=== PATIENT | female | born 1950 | race Caucasian/White ===

== ENCOUNTER 2024-02-03 09:14 | Emergency (ER) | payer OTHER, SELFPAY ==
[2024-02-03 09:21] VITALS: BP 131/69
[2024-02-03 10:18] VITALS: BP 141/57
[2024-02-03 10:19] VITALS: BMI 27.9
--- NOTE | 2024-02-03 10:44 | ED.GENMED ---
History of Present Illness
<Ivory Hernandez MD, Resident - Last Filed: 02/03/24 12:10>
General
Chief Complaint: Ear Problem
Time Seen by Provider: 02/03/24 09:39
History of Present Illness
History of Present Illness:
73-year-old female, MS Cindy Mayo presented to the ER complaining of left-sided, nonradiating pain behind the ear that started 2 days ago and was sudden in onset. The pain is intermittent, squeezing feels like a jab, no aggravating or
relieving factors. No history of dizziness/lightheadedness, headaches, vision changes, nausea/vomiting, ear discharge, loss of hearing, ear fullness, tinnitus, vertigo, fever/chills, dental infections, temporomandibular joint problems, neck
stiffness. She has a past medical history of hypertension, hyperlipidemia, sinus surgeries for polyp removal. Patient reports that in June 2022, she was seen in [place] ER for high blood pressure and she got an MRI done, states she could not
recall entirely but they said something about multiple polyps in her sinuses. No prior history of ear infections.
Past History
<Ivory Hernandez MD, Resident - Last Filed: 02/03/24 12:10>
Past History
ED Past Medical History: HTN and Hypercholesterolemia
ED Past Surgical History: Other (Sinus surgeries/polyp removal)
Social History
Tobacco: Non-smoker
Alcohol: None
Drug: None
Personal:
Living: with family
Review of Systems
<Ivory Hernandez MD, Resident - Last Filed: 02/03/24 12:10>
Review of Systems
All Other Systems: ROS reviewed and negative except as documented in HPI and ROS
Phy Exam
<Ivory Hernandez MD, Resident - Last Filed: 02/03/24 12:10>
Physical Exam
Physical Exam:
GEN: Well appearing, NAD, WDWN
Eyes: PERRLA, EOMs intact, no scleral icterus
HENT: NCAT, oral mucosa moist, no JVD, no cervical adenopathy.
Ear examination�left ear�nontender with pressing on tragus, external auditory canal clear without any cerumen impaction, tympanic membrane normal without any bulging.
Right ear�nontender with pressing on tragus, external auditory canal clear without any cerumen impaction, tympanic membrane normal without any bulging.
No tenderness to palpation behind the ear. No neck stiffness, cervical range of motion normal.
Hearing normal.
Lungs: CTAB, no wheezes, rales, rhonchi, normal chest wall excursion
Cardiac: RRR, no M/R/G, no peripheral edema. Radial pulses 2+ bilat
Abdomen: S, NT, ND, NABS, no masses or hepatosplenomegaly
Neuro: AO x 3, no focal deficits to BUE/BLE, normal sensation throughout
Skin: No rashes, petechiae. Normal color, no pallor or jaundice.
Psych: Calm, cooperative, proper hygiene
Course
<Perlaela Aaron Hernandez MD, Resident - Last Filed: 02/03/24 12:10>
Orders/Labs/Results
Orders:
Orders
02/03/24 10:58
CT Temporal-iac W/o Iv Contras Urgent
Comment:
Reason For Exam: Pain behind the left ear
Vital Signs
Initial and Last Documented VS:
Initial Vital Signs
Temp Pulse Resp BP Pulse Ox
99 F 83 18 131/69 97
02/03/24 09:21 02/03/24 09:21 02/03/24 09:21 02/03/24 09:21 02/03/24 09:21
Last Documented Vital Signs
Temp Pulse Resp BP Pulse Ox
99 F 69 18 141/57 95
02/03/24 09:21 02/03/24 10:18 02/03/24 10:18 02/03/24 10:18 02/03/24 10:20
<Nahun Mccartney DO - Last Filed: 02/03/24 11:10>
Orders/Labs/Results
Orders:
Orders
02/03/24 10:58
CT Temporal-iac W/o Iv Contras Urgent
Comment:
Reason For Exam: Pain behind the left ear
Vital Signs
Initial and Last Documented VS:
Initial Vital Signs
Temp Pulse Resp BP Pulse Ox
99 F 83 18 131/69 97
02/03/24 09:21 02/03/24 09:21 02/03/24 09:21 02/03/24 09:21 02/03/24 09:21
Last Documented Vital Signs
Temp Pulse Resp BP Pulse Ox
99 F 69 18 141/57 95
02/03/24 09:21 02/03/24 10:18 02/03/24 10:18 02/03/24 10:18 02/03/24 10:20
<Ivory Hernandez MD, Resident - Last Filed: 02/03/24 12:10>
MDM/Problems Addressed
Differential Diagnosis Includes:
Occipital neuralgia, temporal arteritis, TMJ disorder, otitis media
MDM/Problems Addressed:
Patient mentioned that her pain is less intense now.
CT mastoid-normal appearance of bilateral temporal bones, unremarkable appearance of left retroauricular soft tissues.
Patient is stable to be discharged home.
Patient advised to follow-up with primary care.
<Ivory Hernandez MD, Resident - Last Filed: 02/03/24 12:10>
*Critical Care Note
Total Time (30-74mins, 75-104mins- exclusive of procedures): Not Applicable
ED Attending Note
<Ivory Hernandez MD, Resident - Last Filed: 02/03/24 12:10>
-
Portions of this chart may have been created with voice recognition software.� Occasional wrong word or��sound alike� substitutions may have occurred due to the inherent limitations of voice recognition software.
<Nahun Mccartney DO - Last Filed: 02/03/24 11:10>
ED Attending Note
Patient seen and examined by attending physician: Yes
I performed a history and physical exam of patient and discussed management with resident, I reviewed resident's note and agree with documented findings and plan of care.: Yes
ED Attending Note:
Seen with resident and examined independently intermittent left sided pain behind her ear sharp, no pain now, no headache nausea vomiting no ear drainage no ear discharge, on exam she has no tenderness over palpation over the mastoid, no otitis
media no rash, etiology of symptoms is not entirely clear she has had no ataxia no nausea no vomiting no visual changes
Discharge Plan
Departure
Patient Disposition: Home (Routine Discharge)
Date of Disposition: 02/03/24
Time of Disposition: 12:07
Patient with high blood pressure during this ER visit?: No
Condition: Good
Discharge Problem:
Occipital neuralgia of left side
Referrals:
Daniel Jonas MD [Family Provider] -
Activity Restrictions/Additional Instructions:
Please follow-up with your e primary care within a week.
Interventions
Interventions:
*Risk Screen - Suicide Last Done: 02/03/24 09:21
*General Assessment Last Done: 02/03/24 09:21
*Neglect/Abuse Screening Last Done: 02/03/24 09:21
Discharge Date and Time
Print Language: HONDURAN
[2024-02-03 11:00] VITALS: BP 126/57
[2024-02-03 12:20] VITALS: BP 154/66
== END 2024-02-03 12:28 | disposition home or self-care (01) ==
LOC: EMR 09:14
PROVIDERS: EMERGENCY PHYSICIAN Emergency Medicine; FAMILY PHYSICIAN Family Medicine
DX: M54.81 Occipital neuralgia (principal); I10 Essential (primary) hypertension; E78.00 Pure hypercholesterolemia, unspecified
CPT/HCPCS: 99284; 70480

== ENCOUNTER 2025-05-13 02:53 | Inpatient (IN) | payer OTHER, SELFPAY ==
[2025-05-12 23:48] VITALS: BP 140/67
[2025-05-13] VITALS (7 sets, daily range): BP systolic 116–148; BP diastolic 56–72; BMI 28.8; BMI 28.3
[2025-05-13] MEDS: PROTONIX IV 40 MG IV (00:22)
[2025-05-13] MEDS: NSS 500 IV ×2 (00:23→02:29)
[2025-05-13] MEDS: TORADOL 15 MG IV (00:23)
--- NOTE | 2025-05-13 00:24 | ED.GENMED ---
History of Present Illness
General
Chief Complaint: Abdominal Pain
Source: patient and spouse
Exam Limitations: none
Time Seen by Provider: 05/12/25 23:55
Nursing documentation reviewed up to this point in time: agreed with
History of Present Illness
History of Present Illness:
Patient presents to ED secondary to sudden onset of lower abdominal pain with multiple loose bowel movements, starting around 6:30 PM. Abdominal pain described as sharp, nonradiating, without any alleviating or exacerbating factors. Patient
reports having had broccoli, crackers, and cheese, and approxi-2 hours prior to onset of her symptoms. Denies recent illness. No recent change in medications or diet. Denies sick contact. Denies previous history of similar symptoms. Patient
reports having had colonoscopy 2 years ago, which was normal.
Past History
Past History
ED Past Medical History: HTN and Hypercholesterolemia
ED Past Surgical History: Other (Sinus surgeries/polyp removal)
Social History
Tobacco: Non-smoker
Alcohol: None
Drug: None
Personal:
Living: with family
Review of Systems
Review of Systems
Allergies reviewed?: Yes
All Other Systems: ROS reviewed and negative except as documented in HPI and ROS
Constitutional: Reports no symptoms; Denies fever
Respiratory: Reports no symptoms
Cardiac: Reports no symptoms
ABD/GI: Reports abdominal pain and diarrhea; Denies nausea or vomiting
Musculoskeletal: Reports no symptoms
Skin: Reports no symptoms
Neurological: Reports no symptoms
Phy Exam
Physical Exam
Physical Exam:
Physical Exam
General: mild painful distress, not acutely ill. afebrile
Head: nc/at. eomi
Neck: supple. no meningeal signs
Heart: s1/s2 regular rate and rhythm
Lungs: no acute respiratory distress. clear bilaterally
Abdomen: normal bowel sounds. no distention. mild diffuse lower abd tenderness to palpation, R>L
Neuro: alert and oriented x 3. no focal neurological deficits
Skin: no rash
Psychiatric: well kept. interactive and cooperative
Extremities: no edema. no calf tenderness.
Course
Orders/Labs/Results
Orders:
Orders
05/12/25 23:48
IV Insert/Care/Rem.- Treatment PRN
Complete Blood Count/With Diff Urgent
Comprehensive Metabolic Panel Urgent
Lipase Urgent
05/13/25 00:18
Ketorolac [Toradol] 15 mg IV NOW STA
05/13/25 00:19
CT Abd/pelvis W Iv Cont Urgent
Comment:
Reason For Exam: lower abd pain
0.9% Sodium Chloride 500 ml [Nss] 500 ml IV BOLUS
Pantoprazole [Protonix IV] 40 mg IV NOW STA
05/13/25 02:10
Piperacillin/Tazo 3.375 Gram [Zosyn] 3.375 gram in 50 ml IV NOW
05/13/25 02:37
Lactate Level [Lactic Acid] Urgent
05/13/25 02:44
Admit/Transfer Patient As Directed
Co-Sign Provider:
Level of Care: Inpatient admission
Assign to:: Telemetry
Physician / Group: Shola
Diagnosis: Colitis, Small Bowel Intussusception
Reason for Telemetry: Arrhythmia
Date to Stop Telemetry: 05/16/25
Time to Stop Telemetry: 11:00
Reason for Hospitalization: Colitis, Small Bowel Intussusception
Expected length of stay greater than two midnights?: Yes
ELOS- Estimated Length of Stay in days: 2
I certify the patient meets the requirements for IP care: Yes
PRN Pain Medication Management As Directed
May give lesser potent ordered pain med per pt: Yes
preference::
Protocol:: Medication orders for pain may be administered in a
manner that supports deferring to patient preference
when the pt is:
- Requesting an ordered lesser potent pain medication.
Least to most potent pain medications are defined
as: acetaminophen < NSAID < tramadol < opioids
(morphine, oxycodone, hydromorphone).
- Requesting a lesser dose of the same medication IF
ORDERED.
- Requesting a less intrusive route of administration
if both routes are prescribed by the provider (PO <
IV).
05/13/25 02:45
Code Status As Directed
Resuscitation Status: Full Code
05/13/25 03:00
0.9% Sodium Chloride 500 ml [Nss] 500 ml IV 100 mls/hr
05/13/25 04:10
0.9% Sodium Chloride 1000 ml [Nss] 1,000 ml IV 100 mls/hr
Acetaminophen [Tylenol] 650 mg PO Q4HPRN PRN
HYDROmorphone [Dilaudid] 0.5 mg IV Q4HPRN PRN
Ondansetron Injectable [Zofran] 4 mg IV Q6HPRN PRN
05/13/25 04:10
Consult Notification Routine
Specialty to Notify: Gastroenterology
Date consulting provider notified: 05/14/25
Time consulting provider notified: 07:32
Notified:: Provider
Comment: Aaron
GASTROINTESTINAL CONSULT Routine
Consulting Provider: Garcia Walker
Was physician already notified: No
Reason for consult: Colitis, Small Bowel Intussusception
Activity As Directed
Activity Level: Ambulate
With Assistance
I/O [Intake/ Output] As Directed
Frequency: Per unit guidelines
Pneumatic Compression Sleeves As Directed
Type: Knee high
Vital Signs As Directed
Frequency: Per unit guidelines
Oxygen Therapy [O2 Therapy] [RESP] Routine
Titrate/Wean O2 to maintain O2 sat greater than (%): 94
DX Deep Vein Thrombosis Video Routine
05/13/25 05:37
Basic Metabolic Panel IN AM
Complete Blood Count/No Diff IN AM
05/13/25 Breakfast
NPO
Allow oral meds: Yes
Allow clear liquids: Sips of Clears
05/13/25 08:00
Pantoprazole [Protonix] 40 mg PO DAILY
05/13/25 09:00
Piperacillin/Tazo 3.375 Gram [Zosyn] 3.375 gram in 50 ml IV Q6H
05/16/25 11:00
DC Protocol for Telemetry ONCE
Abnormal Lab Results
05/13/25
00:11
WBC 14.3 H 10^3/uL
(4.8-10.8)
Absolute Neuts (auto) 12.1 H 10^3/uL
(1.4-6.5)
Neutrophils % 84.6 H %
(42.2-75.2)
Lymphocytes % 10.8 L %
(20.5-51.1)
BUN 20 H mg/dl
(7-17)
Glucose 141 H mg/dl
(70-99)
05/13/25 00:11
05/13/25 00:11
Vital Signs
Initial and Last Documented VS:
Initial Vital Signs
Temp Pulse Resp BP Pulse Ox
98.1 F 76 18 140/67 98
05/12/25 23:48 05/12/25 23:48 05/12/25 23:48 05/12/25 23:48 05/12/25 23:48
Last Documented Vital Signs
Temp Pulse Resp BP Pulse Ox
98.8 F 66 18 141/57 97
05/14/25 11:39 05/14/25 11:39 05/14/25 11:39 05/14/25 11:39 05/14/25 11:39
MDM/Problems Addressed
MDM/Problems Addressed:
CT report reviewed and discussed with patient. In light of patient's ongoing symptoms, along with leukocytosis, patient will be admitted for further evaluation and treatment. Lactate pending. Zosyn given.
*Pulse Oximetry
SaO2: 98
Oxygen Mode of Delivery: Room air
Patient hypoxic: no
*Critical Care Note
Total Time (30-74mins, 75-104mins- exclusive of procedures): Not Applicable
ED Attending Note
-
Portions of this chart may have been created with voice recognition software.� Occasional wrong word or��sound alike� substitutions may have occurred due to the inherent limitations of voice recognition software.
Discharge Plan
Departure
Patient Disposition: Admit
Date of Disposition: 05/13/25
Time of Disposition: 02:15
Admit to: Med/Surg
Presentation/result/management discussed w/ accepting MD/DO: Hospitalist
Condition: Fair
Discharge Problem:
Colitis, Intussusception
Interventions
Interventions:
*Risk Screen - Suicide Last Done: 05/13/25 03:53
*General Assessment Last Done: 05/13/25 03:25
*Neglect/Abuse Screening Last Done: 05/12/25 23:48
*ED- Fall Risk Assessment Last Done: 05/13/25 03:25
*ED COVID-19 Vaccine History Last Done: 05/13/25 03:25
*ED Influenza Vaccine History Last Done: 05/13/25 03:25
*Nursing Disposition Last Done: 05/13/25 03:40
IF-Yknbpu-Vbfkduyjvc Assessment Last Done: 05/13/25 02:43
Discharge Date and Time
Discharge Date/Time: 05/13/25 03:41
[2025-05-13 00:30] LABS: Hematocrit 43.9 % (37.0-47.0); Hemoglobin 14.7 g/dL (12.0-16.0); Mean Corp Hgb Conc. 33.5 g/dL (33.0-37.0); Mean Corpuscular Volume 87.8 fL (81.0-99.0); Nucleated Red Blood Cells % 0 %; Platelet Count 265 10^3/uL (130-400); Red Cell Dist. Width 12.6 % (11.5-14.5)
[2025-05-13 00:46] LABS: ALT (SGPT) 26 U/L (0-35); AST (SGOT) 21 U/L (14-36); Albumin 4.5 g/dl (3.5-5.0); Alkaline Phosphatase 96 U/L (38-126); Blood Urea Nitrogen 20 mg/dl (7-17); Calcium 9.7 mg/dl (8.4-10.2); Carbon Dioxide 29 mmol/L (22-30); Chloride 102 mmol/L (98-107); Estimated Creatinine Clearance 50 ml/min; Glucose 141 mg/dl (70-99); Lipase 102 U/L (23-300); Potassium 4.0 mmol/L (3.5-5.1); Sodium 138 mmol/L (135-145); Total Protein 7.3 g/dl (6.3-8.2); eGFR > 60.00
[2025-05-13] MEDS: ZOSYN 50 IV (02:30)
--- NOTE | 2025-05-13 02:47 | HPS.HSE ---
Family Physician
-
Family Physician: BETH GOLDBERG
Chief Complaint
-
Abd Pain, BRBPR
History of Present Illness
Patient is a 74y F with PMH significant for hypertension who presents to ED complaining of abdominal pain and BRBPR this evening. Patient states that she has been feeling well until around 6 PM this evening. She developed sudden onset of severe
abdominal pain / pressure. She went to the bathroom feeling the urge to move her bowels. Patient notes that she was diaphoretic, nauseated and lightheaded sitting on the toilet. She lay down on the floor to keep from falling. Patient states that
she was incontinent of diarrhea - soft / loose brown stool. This was not bloody. She was on the floor for a time before her returned home to help her up.
She continued to have abdominal pain even after her bowel movement.
Around 11 PM, she returned to the bathroom to urinate. She had a small 'bowel movement' at that time as well. When she looked she noted a clot in the toilet and BRB on the toilet paper. No stool.
Patient presented to the ED for further evaluation and treatment.
She denies any prior h/o similar symptoms.
No known sick contacts. No recent travel. She had some raw broccoli at a [facility] this afternoon which she notes is unusal for her - no other recent food changes / atypical exposures.
Patient had colonoscopy last about 2 years and it was reportedly normal.
Medical History
Past Medical History
Past Medical History: Reports Other
Additional Past Medical History:
Hypertension
Sinus Polyps
Past Surgical History: Reports Other
Additional Past Surgical History:
Sinus Surgery x 3
Right Hip ORIF
Social History
Tobacco: Non-smoker
Alcohol: None
Drug: None
Family History
Family History: Not pertinent
Allergies / Home Medications
Allergies reflects when Allergies were last updated in [facility].
Home Medications with original date entered in [facility]
Allergy/Medication List:
Allergies
Allergy/AdvReac Type Severity Reaction Status Date / Time
No Known Allergies Allergy Verified 05/13/25 00:40
Home Medications
efinaconazole 10 % topical solution with applicator (Jublia) 1 applic topical DAILY 05/13/25
hydrochlorothiazide 12.5 mg tablet 12.5 mg PO DAILY 05/13/25
pravastatin 20 mg tablet 20 mg PO QPM 05/13/25
valsartan 40 mg tablet 40 mg PO DAILY 05/13/25
valsartan 80 mg tablet 80 mg PO BID 05/13/25
Review of Systems
-
History Source: Patient
A 12 point ROS was completed and negative except as noted: Yes
Constitutional: Reports Fatigue and Chills; Denies Fever
EENT: Denies Sore Throat
Respiratory: Denies Cough or Trouble Breathing
Cardiac: Denies Chest Pain or Palpitations
Abdomen/GI: Reports Abdominal Pain, Nausea, Diarrhea and Bloody Stools; Denies Vomiting or Anorexia
: Denies Dysuria, Frequency or Flank Pain
Musculoskeletal: Denies Joint Pain or Edema
Neurological: Reports Dizzy; Denies Headache
Psych: Denies Depression or Anxiety
Physical Exam
Vital Signs
Vital Signs
Temp Pulse Resp BP Pulse Ox
98.1 F 78 20 116/56 94
05/12/25 23:48 05/13/25 01:15 05/13/25 01:15 05/13/25 01:00 05/13/25 01:00
Physical Exam
General: Other (74y F in no acute distress.)
HEENT: Moist mucous membranes and PERRLA
Respiratory: Clear; No Wheezes, Rales or Rhonchi
Cardiac: S1/S2 and Regular Rhythm; No Murmur
GI: Other (Abdomen is softly distended. Bowel sounds are appreciated. No focal tenderness, rebound / guarding at present.)
Musculoskeletal: No Clubbing, No Cyanosis and No Edema
Neuro: AO x 3
Laboratory Results
-
05/13/25 00:11
05/13/25 00:11
Laboratory Results
Total Bilirubin 0.2 mg/dl (0.2-1.3) 05/13/25 00:11
AST 21 U/L (14-36) 05/13/25 00:11
ALT 26 U/L (0-35) 05/13/25 00:11
Alkaline Phosphatase 96 U/L (38-126) 05/13/25 00:11
Lipase 102 U/L (23-300) 05/13/25 00:11
Impression/Plan
-
A/P: Patient is a 74y F with PMH significant for hypertension who presents to ED complaining of abdominal pain and BRBPR.
Colitis
- Admit for further evaluation and treatment.
- CT scan done in the ED this evening shows area of inflammation in the descending colon c/w colitis.
- ? infectious v ischemic v other. Lactate normal (1.2). CT (with contrast) report makes no mention of vascular structures in the positive or negative. Follow-up formal report.
- Cover with Zosyn for now. Check stool studies if further diarrhea.
- IVF support. Monitor for changes in BP. Hold usual antihypertensive medications for now.
- GI evaluation for additional recommendations.
Small Bowel Intussusception
- ? if initial abdominal pain was related to colitis v intussusception?
- CT with no specific note of any mass or other abnormality at this site. Follow-up formal report.
- GI eval for additional recommendations.
- Follow for any new / recurrent symptoms.
Benign Hypertension
- Stable. BP well-controlled at present.
- Hold usual antihypertensive medications acutely as noted above.
- Resume when appropriate / adjust doses as needed to avoid hypotension.
DVT Prophylaxis: SCDs
Code Status: Full
--- NOTE | 2025-05-13 03:41 | PTCARENOTE ---
Pt received from ED tp 418-1. Pt oriented to room and call rutledge.
[2025-05-13] MEDS: NSS 1000 IV ×2 (04:30→15:51)
[2025-05-13 06:57] LABS: Hematocrit 39.1 % (37.0-47.0); Hemoglobin 12.8 g/dL (12.0-16.0); Mean Corp Hgb Conc. 32.7 g/dL (33.0-37.0); Mean Corpuscular Volume 91.6 fL (81.0-99.0); Platelet Count 235 10^3/uL (130-400); Red Cell Dist. Width 12.5 % (11.5-14.5)
[2025-05-13 07:17] LABS: Blood Urea Nitrogen 17 mg/dl (7-17); Calcium 8.6 mg/dl (8.4-10.2); Carbon Dioxide 28 mmol/L (22-30); Chloride 105 mmol/L (98-107); Estimated Creatinine Clearance 56 ml/min; Glucose 107 mg/dl (70-99); Potassium 3.9 mmol/L (3.5-5.1); Sodium 136 mmol/L (135-145); eGFR > 60.00
--- NOTE | 2025-05-13 07:36 | W.PN.HOSP.TC ---
Today's Communication/Plan
-
Held Zosyn.
Monitor CBC, CMP
Assessment / Plan
Assessment / Plan
74-year-old female with known history of hypertension presented with abdominal pain, hematochezia.
# Abdominal pain secondary to ischemic colitis:
Vitals: BP 138/72, MA 75, recent dehydration suspicious for ischemic colitis.
Lab: Sodium, potassium, creatinine, chloride, bicarbonate, hemoglobin, lactate are WNL.
Lactate WNL
On 05/13 CT scan abdomen impression:
1. Bowel wall thickening and inflammatory change involving the descending colon, consistent with infectious or inflammatory colitis.
2. Sigmoid diverticulosis without evidence of diverticulitis.
Held Zosyn.
colonoscopy in future.
Pantoprazole 40 mg
GI consultation.
Held antihypertensives.
DVT: SCDs
Code: Full
Anticipated Discharge: 24 - 48 hours
Subjective/Interval History
-
Date of Service: May 13, 2025
Last night around 7 PM the patient went to the restroom and while on sitting she felt abdominal pain, followed by dizziness, lightheadedness, sweating. She immediately laid down at the bathroom, later she did bowel movement with blood, followed by
relieving of abdominal pain. She was afraid of another episode, and arrived to the ER. Currently she is not experiencing abdominal pain, nausea, vomiting, hematuria, chest pain, dyspnea, palpitation. She never had similar episodes before. She
currently taking antihypertensives hydrochlorothiazide, losartan. She does not have a sick contact. She never had refrigerated, old food.
Objective Data
-
Labs:
Laboratory Results
05/13/25 05/13/25
00:11 05:37
WBC 14.3 H 10.4
Hgb 14.7 12.8
Hct 43.9 39.1
Plt Count 265 235
Sodium 138 136
Potassium 4.0 3.9
Chloride 102 105
Carbon Dioxide 29 28
BUN 20 H 17
Creatinine 0.9 0.8
Glucose 141 H 107 H
Calcium 9.7 8.6
Total Bilirubin 0.2
AST 21
ALT 26
Alkaline Phosphatase 96
Vital Signs:
Vital Signs
Temp Pulse Resp BP Pulse Ox
98.0 F 74 16 145/67 97
05/13/25 03:47 05/13/25 03:47 05/13/25 03:47 05/13/25 03:47 05/13/25 03:47
Review of Systems
-
History Source: Patient
All other systems: Reviewed and negative
Physical Exam
-
General: Well Developed
Respiratory: Clear to Auscultation
Cardiac: Regular Rhythm, Tachycardic and Other (Skipped beat present on auscultation.)
GI: Soft, Nontender, Nondistended and Normal Bowel Sounds
Genito-urinary: No Costovertebral Tender
Neuro: AO x 3
[2025-05-13 08:18] LABS: Hepatitis C Antibody Negative (Negative)
[2025-05-13] MEDS: PROTONIX 40 MG PO (08:53)
--- NOTE | 2025-05-13 09:57 | CON.GI ---
Addendum entered and electronically signed by Garcia Walker DO 05/13/25 11:47:
I saw and examined the patient.
The DROSS SKIMMER's note was reviewed and I agree with the note.
Comment: Ms Mayo is a 74 y.o female with a past medical history as listed who presented to the ED with multiple episodes of initial non-bloody watery bowel movements and abdominal pain. Denies any chronicity of symptoms and was in her USOH until
yesterday afternoon. Reports acute onset of symptoms after eating dinner and reports eating raw broccoli but denies any sick contacts or other known spoiled food. Later had sweats without any fevers or chills and ongoing looser, watery stools which
eventually progressed with few clots of dark blood. Denies any history of GI bleeding in past. Last colonoscopy 2020 back in [facility]) which was reportedly unremarkable. No other NSAIDs or anticoagulation. In the ED, labs initially revealed a
leukocytosis with WBC 14.3k with left shift. CT Abd/pelvis on 05/13/25 revealed bowel wall thickening and inflammatory changes involving the descending colon, c/f infectious versus inflammatory colitis. No other abnormalities within the small bowel
or other evidence of intussusception (previous concern on prior prelim read). Clinically, seems most consistent with an acute, self-limited infectious colitis versus ischemic colitis given abdominal pain and progression with bloody stools. Much less
likely IBD or malignancy given her recent colonoscopy. Recommend checking stool studies along with ongoing supportive care given her improving symptoms without any further bloody stools.
Recommendations:
- Low-fiber, low-residue diet as tolerated
- Check infectious stool studies
- IVF as needed, encourage p.o intake
- Remains on IV abx as per primary team, would consider empiric treatment for 5-7 day course
- Maintain MAPs > 65, avoid periods of hypotension
- Given improving symptoms, would defer any plans for a colonoscopy at this time. Favor repeat colonoscopy as outpatient
- Strict avoidance of all NSAIDs
- Pain control and IV-antiemetics PRN
- Rest of care as outlined below
GI will continue to follow while inpatient, please call with any questions or concerns.
Original Note:
Consultation
-
Date/Time Consultation Requested: 05/13/25 0410
Date/Time Consultation Performed: 05/13/25 1000
Requesting Provider: Samir Jolley DO
Performing Provider: ASHLEY Zapata, Garcia Walker DO
Reason for Consultation: abdominal pain, rectal bleeding
Medical History
Chief Complaint / HPI
History of Present Illness:
Pt is a 74yo with hx prior femur repair, sinus surgery, GERD, ? colon polyps, chronic constipation, HTN, hypercholesterolemia with onset of abdominal pain with multiple loose stools. In review with patient she admits to hx GERD with belching with
occasional course of Omprazole, occasional dysphagia with gummy solids like peanut butter sandwich, and chronic constipation. She began with onset of constipation at 3:30pm on 05/12. She had BM then went to [facility]. On return ate dinner and then
had episode at 6:30 with crampy abdominal pain, sweats and passed loose watery stool. she laid down at did not feel week and pass further stool with a few clots of dark blood and present to ER. On admission CT with colitis possible SB
intussusception lateral left mid abdomen. With final Ct red with descending colitis. Last colonoscopy 2020 [facility] recalls as normal.
Pt otherwise denies nausea/vomiting, chronic diarrhea but admits to occasional red blood with hemorrhoids. No anticoagulation prior to admission.
Past Medical History
Past Medical History: GERD, HTN, Hypercholesterolemia and Other (? colon polyps, chronic constipation )
Past Surgical History: Orthopedic (femur repair) and Other (sinus surgery )
Social History
Tobacco: Non-Smoker
Alcohol: None
Drug: None
Personal:
Living: With Family
Employment: Retired
Family History
Family History: Other (no family hx colon Ca or GI problems )
Allergies / Home Medications
Allergy/AdvReac Type Severity Reaction Status Date / Time
No Known Allergies Allergy Verified 05/13/25 00:40
�Medication �Instructions �Recorded
efinaconazole 10 % topical 1 applic topical DAILY 05/13/25
solution with applicator (Jublia)
hydrochlorothiazide 12.5 mg tablet 12.5 mg PO DAILY 05/13/25
pravastatin 20 mg tablet 20 mg PO QPM 05/13/25
valsartan 40 mg tablet 40 mg PO DAILY 05/13/25
valsartan 80 mg tablet 80 mg PO BID 05/13/25
Review of Systems
-
History Source: Patient
Constitutional: Reports Other (sweat with loose stool)
EENT: Reports No Symptoms
Respiratory: Reports No Symptoms
Abdomen/GI: Reports Abdominal Pain, Diarrhea (with onset of symptoms ), Constipated (chronic ), Bloody Stools and Other (dark red clots small amount prior to admission)
Musculoskeletal: Reports Joint Pain and Muscle Pain
Skin: Reports No Symptoms
Neurological: Reports No Symptoms and Weakness
Endocrine: Reports No Symptoms
Hematologic/Lymphatic: Reports Bleeding
Vital Signs
Temp Pulse Resp BP Pulse Ox
98.5 F 75 20 130/72 97
05/13/25 08:31 05/13/25 08:31 05/13/25 08:31 05/13/25 08:31 05/13/25 08:31
Physical Exam
Exam
General: Well Developed, Well Nourished and No Apparent Distress
HEENT: Normocephalic and Anicteric
Respiratory: Clear
Cardiac: Regular Rhythm
GI: Soft, Tender (minimal no guarding or rebound ) and Distended (minimal )
Musculoskeletal: No Clubbing and No Cyanosis
Skin: Warm and Dry
Neuro: Awake, Alert and AO x 3
Psych: Calm
Results
WBC 10.4 10^3/uL (4.8-10.8) 05/13/25 05:37
Hgb 12.8 g/dL (12.0-16.0) 05/13/25 05:37
Hct 39.1 % (37.0-47.0) 05/13/25 05:37
MCV 91.6 fL (81.0-99.0) 05/13/25 05:37
Plt Count 235 10^3/uL (130-400) 05/13/25 05:37
Absolute Neuts (auto) 12.1 10^3/uL (1.4-6.5) H 05/13/25 00:11
Sodium 136 mmol/L (135-145) 05/13/25 05:37
Potassium 3.9 mmol/L (3.5-5.1) 05/13/25 05:37
Chloride 105 mmol/L (98-107) 05/13/25 05:37
Carbon Dioxide 28 mmol/L (22-30) 05/13/25 05:37
BUN 17 mg/dl (7-17) 05/13/25 05:37
Creatinine 0.8 mg/dL (0.6-1.0) 05/13/25 05:37
Calcium 8.6 mg/dl (8.4-10.2) 05/13/25 05:37
Total Bilirubin 0.2 mg/dl (0.2-1.3) 05/13/25 00:11
AST 21 U/L (14-36) 05/13/25 00:11
ALT 26 U/L (0-35) 05/13/25 00:11
Alkaline Phosphatase 96 U/L (38-126) 05/13/25 00:11
Lipase 102 U/L (23-300) 05/13/25 00:11
Hepatitis C Antibody Negative (Negative) 05/13/25 05:37
Diagnostic Image Results:
05/13/25 CT Abd/pelvis W Iv Cont
1. Bowel wall thickening and inflammatory change involving the descending colon, consistent with infectious or inflammatory colitis.
2. Sigmoid diverticulosis without evidence of diverticulitis.
prelimiary CT wall thickening descending b/l suggest colitis, short segment non obstructing small bowel intussusception lateral left mid abdomen
Prior GI Procedures:
EGD: 2018 for GERD
Colonoscopy: 2018 ? poly and 2020 with [facility]
Assessment / Plan
-
Pt is a 74yo with hx prior femur repair, sinus surgery, GERD, ? colon polyps, chronic constipation, HTN, hypercholesterolemia with onset of abdominal pain with multiple loose stools. In review with patient she admits to hx GERD with belching with
occasional course of Omprazole, occasional dysphagia with gummy solids like peanut butter sandwich, and chronic constipation. She began with onset of constipation at 3:30pm on 05/12. She had BM then went to [employer]. On return ate dinner and then
had episode at 6:30 with crampy abdominal pain, sweats and passed loose watery stool. she laid down at did not feel week and pass further stool with a few clots of dark blood and present to ER. On admission CT with colitis possible SB
intussusception lateral left mid abdomen. With final Ct red with descending colitis. Last colonoscopy 2020 [facility] recalls as normal. Pt otherwise denies nausea/vomiting, chronic diarrhea but admits to occasional red blood with hemorrhoids.
No anticoagulation prior to admission.
-onset of constipation with diarrhea with small amount of blood with clots
-CT with descending colitis
-preliminary Ct with possible SB intussusception
-GERD
other med problems:
femur repair, sinus surgery, GERD, ? colon polyps, chronic constipation, HTN, hypercholesterolemia
PLAN:
etiology of pain with bleeding related to colitis -- infectious vs ischemic
check stool studies
maintain perfusion
remain on IV Zosyn
cont PPI with hx GERD
ok for clear diet
if improving consider eventual repeat colonoscopy and ? SB imaging with known GI in [place]
reviewed with Dr. baird
-
-
Thank you for consultation and allowing me to participate in the patient's care. Please call the network consultant GI physician during the after hours with any questions or concerns.
--- NOTE | 2025-05-13 12:23 | CM ---
CM reviewed chart, patient seen in chair, initial assessment completed.
Patient resides with her in a one level home, one step to enter through garage or front door.
Patient is independent with ADLS/IADLS, denies VN/SNF.
Patient PCP Karen Vargas, [facility], confirms prescription coverage through [facility].
Patient denies insecurities at home.
CM will continue to follow.
Plan; home no needs
--- NOTE | 2025-05-13 15:39 | W.PN.UPDATE ---
Update Note
Progress Note Update
followed up with Dr. Walker-- pt feeling much better, no further stools or pain, tolerating liquid diet. Will advance to full liquid diet and ok for low residue in AM if tolerating. updated family. Plan for OP follow with known GI in [place].
Copy of CT given to patient for follow up. All questions answered. Will sign off call with questions.
[2025-05-14] MEDS: NSS 1000 IV (02:14)
[2025-05-14 03:35] VITALS: BP 146/69
[2025-05-14 07:48] VITALS: BP 132/62
--- NOTE | 2025-05-14 08:40 | W.PN.HOSP.TC ---
Today's Communication/Plan
-
Discharge
Hold antihypertensives until PCP appointment
Follow-up with GI for colonoscopy as outpatient
Assessment / Plan
Assessment / Plan
#Abdomen pain with hematochezia
- Differentials include ischemic colitis > infectious > IBD and other causes
- Presented with lower abdomen pain, 1 episode of bloody stool; mentions dehydration prior to episode
- Initial lactate normal though symptomatically was resolved at that time; no further bloody stools or diarrhea
- Blood pressures been normotensive despite holding home HCTZ and valsartan; question episode of hypotension PAINTING MANAGER
- Was initially started on IV Zosyn which has since been discontinued, remains clinically stable
- Evaluated by GI, no plan for colonoscopy inpatient, will plan for OP evaluation
- Monitor for recurrence, plan for OP colonoscopy
#Primary hypertension
- Home medications include HCTZ and valsartan
- No known history of hypertensive systemic disease
- Home medications held, blood pressure remains near normotension
- Will continue to monitor, hold home BP meds until OP follow-up
#Dyslipidemia
- Home regimen includes pravastatin nightly
- No known history of ASCVD though may have ischemic colitis as above
Diet: LRD
DVT: SCDs
Code: Full
Dispo: Discharge home today
Anticipated Discharge: Today
Subjective/Interval History
-
Date of Service: May 14, 2025
Seen and examined at the bedside. No acute events reported overnight. AFVSS this morning.
Continues to be pain-free. No further episodes of hematochezia. Hemoglobin stable
Denies any new complaints, states she feels well for discharge
Objective Data
-
Labs:
Laboratory Results
05/14/25
08:40
WBC Pending
Hgb Pending
Hct Pending
Plt Count Pending
Vital Signs:
Vital Signs
Temp Pulse Resp BP Pulse Ox
98.8 F 78 18 132/62 96
05/14/25 07:48 05/14/25 07:48 05/14/25 07:48 05/14/25 07:48 05/14/25 07:48
I&O
05/13/25 05/14/25 05/15/25
06:59 06:59 06:59
Intake Total 600 / 600
Balance 600 / 600
Review of Systems
-
History Source: Patient
All other systems: Reviewed and negative
Physical Exam
-
General: Well Developed, No Apparent Distress and Comfortable
HEENT: Normocephalic, Atraumatic, Moist Mucous Membranes, Anicteric and PERRLA
Respiratory: Clear to Auscultation and Non Labored Respirations
Cardiac: Regular Rhythm and S1/S2; Negative Murmur, Rub or Gallop
GI: Soft, Nontender, Nondistended and Normal Bowel Sounds
Musculoskeletal: No Clubbing, No Cyanosis and No Edema
Skin: Warm and Dry; Negative Rash
Neuro: AO x 3, Nonfocal/Grossly Intact and Central Nerve's Intact; Negative Tremors
Psych: Calm
Data Reviewed
-
Labs: Labs Reviewed by me, Discussed with Nurse and Discussed with Patient
[2025-05-14 09:25] LABS: Hematocrit 39.9 % (37.0-47.0); Hemoglobin 12.6 g/dL (12.0-16.0); Mean Corp Hgb Conc. 31.6 g/dL (33.0-37.0); Mean Corpuscular Volume 92.4 fL (81.0-99.0); Nucleated Red Blood Cells % 0 %; Platelet Count 221 10^3/uL (130-400); Red Cell Dist. Width 12.7 % (11.5-14.5)
[2025-05-14] MEDS: PROTONIX 40 MG PO (09:31)
[2025-05-14 11:39] VITALS: BP 141/57
--- NOTE | 2025-05-14 11:42 | CM ---
CM reviewed chart, patient for d/c today.
Patient denies needs upon d/c- confirms transport home from .
IMM verbally reviewed, provided with copy, placed in chart.
CM will continue to follow.
Plan; home no needs
[2025-05-14] MEDS: NSS IV (11:49)
--- NOTE | 2025-05-15 15:11 | W.DCSUMMARY ---
Discharge Summary
Discharge Data
Date of Admission: 05/13/25
Date of Discharge: 05/14/25
Total time spent discharging patient (in min): 33
-
Pending Results: No
Hospital Course
Discharging provider: Bobby Cavazos DO
Discharge disposition: Home
Primary discharge diagnoses:
Descending colitis (high suspicion for ischemic colitis)
Abdomen pain
Hematochezia x 1 episode
Chronic discharge diagnoses:
Primary hypertension
Dyslipidemia
Sinus polyps s/p resection
Right hip fracture s/p ORIF
Hospital course:
74-year-old female who presented to the hospital with abdomen pain and bright red blood per rectum/hematochezia x 1 time prior to arrival. Patient states that the day prior to arrival to the hospital she was likely dehydrated and did not drink much
water or other fluids that day. Continue to take her home hydrochlorothiazide and valsartan then developed abdomen pain that night with the episode of hematochezia that prompted her to come to ED. Upon arrival was hemodynamically stable and
afebrile. Started on IV fluids in the ED and IV Zosyn as well. CT scan showed signs of descending colitis without any signs of diverticulitis. Suspect that she had low blood pressure prior to arrival leading to her ischemic colitis as blood
pressure in the hospital off of her home antihypertensives was very well-controlled. She had no further episodes of hematochezia or pain. Lactate was normal when checked in the hospital. Was evaluated by gastroenterology who felt no need for
inpatient colonoscopy. Patient remained clinically stable from time of arrival to the hospital. Was discharged with recommendation to follow-up as outpatient with GI for colonoscopy. At time of discharge her home HCTZ and valsartan was held, she
was encouraged to drink 64 ounces of water daily for adequate hydration.
Consultants:
Gastroenterology -- Garcia Walker DO
Pertinent imaging findings:
CT A/P with IV contrast (05/13/2025)
IMPRESSION: Bowel wall thickening and inflammatory change involving the descending colon, consistent with infectious or inflammatory colitis. Sigmoid diverticulosis without evidence of diverticulitis.
Procedural findings: N/A
Follow-up:
Family doctor within 1 week
Conveyor Operator in 2 to 3 weeks
Discharge Plan
-
Patient Disposition: Home (Routine Discharge)
Discharge Diagnosis/Procedures: Abdomen pain and 1 episode of bloody stool
Suspected ischemic colitis (resolved near time of arrival)
Condition: Good
Diet: No restrictions
Activity: As tolerated
Driving Restrictions: As prior to admission
Bathing Restrictions: None
Blood Work: Follow-up with your family doctor for BMP and CBC with differential in 1 week
Others Tests: Colonoscopy to be scheduled with vulnerability researcher
Referrals:
PRIVATE,PHYSICIAN [Family Provider, Internal Medicine] - in less than 1 week
Garcia Walker, DO [Active, Gastroenterology] - in two to three weeks
Additional Discharge Medication Instructions: Stop taking hydrochlorothiazide and valsartan until you see your family doctor. It is possible that you were dehydrated and your blood pressure dropped which led to a reduction in the blood flow to your
colon leading to the pain and bloody stool.
Monitor home blood pressures. Can resume valsartan if systolic blood pressure >140 mmHg
Prescriptions:
New
pantoprazole 40 mg Tablet,Delayed Release (Dr/Ec)
40 mg PO DAILY 30 Days Qty: 30 0RF
Continued
pravastatin 20 mg tablet
20 mg PO QPM
Jublia 10 % solution with applicator
1 applic TOPICAL DAILY
Held
valsartan 80 mg tablet
80 mg PO BID
Hold Instructions: Until you follow-up in office with family doctor
valsartan 40 mg tablet
40 mg PO DAILY
Hold Instructions: Until you follow-up in office with family doctor
hydrochlorothiazide 12.5 mg tablet
12.5 mg PO DAILY
Hold Instructions: Until seen in office by family doctor
Discharge Orders:
Discharge Patient (As Directed); Ordered 05/14/25
Ordered By: Bobby Cavazos
Discharge Date and Time
Discharge Date/Time: 05/14/25 12:31
Print Language: SCOTTISH
== END 2025-05-14 12:31 | disposition home or self-care (01) | DRG 394 ==
LOC: 4 WEST ACU 02:53
PROVIDERS: ADMITTING PHYSICIAN Hospitalist; ATTENDING PHYSICIAN Internal Medicine; CONSULT PHYSICIAN Student in an Organized Health Care Education/Training Program; EMERGENCY PHYSICIAN Emergency Medicine
DX: K55.9 Vascular disorder of intestine, unspecified (principal); K56.1 Intussusception; I10 Essential (primary) hypertension; K57.30 Diverticulosis of large intestine without perforation or abscess without bleeding; K63.5 Polyp of colon
CPT/HCPCS: 74177; 80048; 80053; 83605; 83690; 85025; 85027; 85652; 86803; 96361; 96374; 96375; 99284; Q9967